=== PATIENT | male | born 1950 | race Caucasian/White ===

== ENCOUNTER 2019-07-26 14:37 | Emergency (ER) | payer OTHER ==
[~2019-07-26] VITALS: Ht 175.3 cm; Wt 88.4 kg
[2019-07-26] MEDS ORDERED: cloNIDine 0.1 mg tablet PO STA (15:42)
[2019-07-26 16:12] LABS: BASOPHILS # (AUTO) 0.1 X10'3 (0-0.2); BASOPHILS % (AUTO) 0.8 % (0-1); EOSINOPHILS % (AUTO) 0.3 % (0-6); HEMATOCRIT 49.6 % (42.0-52.0); HEMOGLOBIN 16.8 g/dl (14.0-17.9); LYMPHOCYTES # (AUTO) 1.5 X10'3 (1.1-4.8); LYMPHOCYTES % (AUTO) 18.8 % (21-51); MEAN CORPUSCULAR HEMOGLOBIN 32.6 PG (27.0-31.0); MEAN CORPUSCULAR HGB CONC 33.8 g/dL (33.0-36.5); MEAN CORPUSCULAR VOLUME 96.5 FL (78-98); MEAN PLATELET VOLUME 9.7 FL (7.4-10.4); MONOCYTES # (AUTO) 1.1 X10'3 (0-0.9); MONOCYTES % (AUTO) 13.8 % (2-12); NEUTROPHILS # (AUTO) 5.2 X10'3 (1.8-7.7); NEUTROPHILS % (AUTO) 66.3 % (42-75); PLATELET COUNT 184 X10'3 (140-440); RED BLOOD COUNT 5.14 X10'6 (4.70-6.10); RED CELL DISTRIBUTION WIDTH 13.8 % (11.5-14.5); WHITE BLOOD COUNT 7.8 X10'3 (4.5-11.0)
[2019-07-26 16:28] LABS: ALANINE AMINOTRANSFERASE 57 U/L (12-78); ALBUMIN 3.7 G/DL (3.4-5.0); ALBUMIN/GLOBULIN RATIO 1.1 (1.1-1.5); ALKALINE PHOSPHATASE 128 IU/L (46-116); ANION GAP 15 (8-16); ASPARTATE AMINO TRANSFERASE 51 U/L (10-37); BILIRUBIN,TOTAL 1.4 MG/DL (0.1-1.0); BLOOD UREA NITROGEN 15 MG/DL (7-18); BUN/CREATININE RATIO 12.9 (5.4-32.0); CALCIUM 9.3 MG/DL (8.5-10.1); CHLORIDE 102 MMOL/L (99-107); CREATININE 1.16 MG/DL (0.60-1.10); ETHANOL < 0.010 GM/DL (0.0-0.010); GLUCOSE 87 MG/DL (70-104); LIPASE 254 U/L (73-393); MAGNESIUM 1.8 MG/DL (1.5-2.4); PHOSPHORUS 3.7 MG/DL (2.3-4.5); POTASSIUM 3.9 MMOL/L (3.5-5.1); SODIUM 141 MMOL/L (135-145); TOTAL CARBON DIOXIDE 24.1 MMOL/L (24-32); eGFR 62 ML/MIN
[2019-07-26 16:44] VITALS: BP 168/138
[2019-07-29] MEDS ORDERED: NO HOME MEDS (07:01)
[2019-08-01] MEDS ORDERED: LOSA50TA3 PO (17:03)
[2019-08-01] MEDS ORDERED: ATOR20TA66 PO (17:03)
[2019-08-01] MEDS ORDERED: HYDR12.55 PO (17:03)
[2019-08-01] MEDS ORDERED: ASPI-611 PO (17:03)
[2019-08-01] MEDS ORDERED: AMLO5TAB16 PO (17:03)
== END 2019-07-26 16:53 | disposition home or self-care (01) ==
LOC: ER 14:37
DX: F10.10 Alcohol abuse, uncomplicated (principal); Z87.891 Personal history of nicotine dependence; Y90.0 Blood alcohol level of less than 20 mg/100 ml
CPT/HCPCS: 36415; 80053; 80320; 83690; 83735; 84100; 85025; 99284